=== PATIENT | female | born 1960 | race Hispanic/Latino ===

== ENCOUNTER 2018-05-29 10:39 | Outpatient (CLI) | payer OTHER | END 2018-05-29 10:40 | disposition home or self-care (01) | LOC: BICMAMMO 10:39 | PROVIDERS: ATTEND Family Medicine | DX: Z12.31 Encounter for screening mammogram for malignant neoplasm of breast (principal) | CPT/HCPCS: 77063; 77067 ==

== ENCOUNTER 2019-07-15 13:53 | Outpatient (CLI) | payer OTHER ==
--- NOTE | 2019-07-15 11:40 | MMO ---
Bilateral MAMMO Bilat Screen [facility]. CLINICAL HISTORY: Patient is 59 years old and is seen for screening. The patient has no family history of breast cancer. The patient has no personal history of cancer. VIEWS: The views performed were: bilateral craniocaudal with tomosynthesis and bilateral mediolateral oblique with tomosynthesis. FILMS COMPARED: The present examination has been compared to prior imaging studies performed at [facility] on 12/14/2014, 02/07/2016, 04/01/2017 and 05/29/2018. This study has been interpreted with the assistance of computer-aided detection. MAMMOGRAM FINDINGS: There are scattered fibroglandular densities. Finding 1: There are stable benign appearing calcifications seen in both breasts. There are no suspicious masses, calcifications or areas of architectural distortion. Finding 2: There is a stable oval mass seen in the left breast. There are no suspicious masses, suspicious calcifications, or new areas of architectural distortion. IMPRESSION: THERE IS NO MAMMOGRAPHIC EVIDENCE OF MALIGNANCY. A ROUTINE FOLLOW-UP MAMMOGRAM IN 1 YEAR IS RECOMMENDED. THE RESULTS OF THIS EXAM WERE SENT TO THE PATIENT. ACR BI-RADS Category 2 - Benign finding MAMMOGRAPHY NOTE: 1. A negative mammogram report should not delay a biopsy if a dominant of clinically suspicious mass is present. 2. Approximately 10% to 15% of breast cancers are not detected by mammography. 3. Adenosis and dense breasts may obscure an underlying neoplasm. Reported by: SAYDA ANGELO MD Electonically Signed: [id number]
== END 2019-07-15 13:54 | disposition home or self-care (01) ==
LOC: BICMAMMO 13:53
PROVIDERS: ATTEND Family Medicine
DX: Z12.31 Encounter for screening mammogram for malignant neoplasm of breast (principal)
CPT/HCPCS: 77063; 77067

== ENCOUNTER 2020-05-30 14:36 | Outpatient (CLI) | payer BC ==
--- NOTE | 2020-05-30 14:53 | RAD ---
EXAM: Chest PA and lateral: HISTORY: Dyspnea. Systemic sclerosis. COMPARISON: 12/15/2014 FINDINGS: Heart: Normal cardiac silhouette Aorta: Unremarkable Pulmonary vessels: Normal Costophrenic angles: Costophrenic angles are clear. Lungs: No consolidation or masses. Chronic lung parenchymal changes. Pneumothorax: No pneumothorax Osseous structures: No osseous abnormalities IMPRESSION: No acute cardiopulmonary process.
== END 2020-05-30 14:37 | disposition home or self-care (01) ==
LOC: BICRAD 14:36
PROVIDERS: ATTEND Internal Medicine Rheumatology
DX: R06.00 Dyspnea, unspecified (principal); M34.9 Systemic sclerosis, unspecified
CPT/HCPCS: 71046

== ENCOUNTER 2021-05-02 10:21 | Outpatient (CLI) | payer BC | END 2021-05-02 10:22 | disposition home or self-care (01) | LOC: BICRAD 10:21 | PROVIDERS: ATTEND Internal Medicine Pulmonary Disease | DX: R06.00 Dyspnea, unspecified (principal) | CPT/HCPCS: 71046 ==

== ENCOUNTER 2021-07-10 12:19 | Outpatient (CLI) | payer BC | END 2021-07-10 12:20 | disposition home or self-care (01) | LOC: BICMAMMO 12:19 | PROVIDERS: ATTEND Family Medicine | DX: Z12.31 Encounter for screening mammogram for malignant neoplasm of breast (principal) | CPT/HCPCS: 77063; 77067 ==

== ENCOUNTER 2023-06-21 18:17 | Inpatient (IN) | payer MEDICARE, MEDICAID ==
[2023-06-21] MEDS ORDERED: Ondansetron PF 4 MG/2 ML Vial ONE (18:32)
[2023-06-21] MEDS ORDERED: hydrALAZINE 20 MG/ML VIAL ONE (18:59)
[2023-06-21] MEDS ORDERED: Promethazine HCl 25 MG in Sodium Chloride 0.9% 50 ML IVPB SCH (19:00)
[2023-06-21] MEDS ORDERED: Pantoprazole 80 MG, Admixture Fee 1 EACH in Sodium Chloride 0.9% 100 ML IVPB SCH (19:00)
[2023-06-21 19:10] LABS: #Eosinphils 0.2 thou/uL (0.0-0.7); #Monocytes 0.6 thou/uL (0.11-0.59); #Neutrophils 7.5 thou/uL (1.40-6.50); %Basophils 0.3 % (0.0-1.0); %Eosinophils 2.3 % (0.0-10.0); %Lymphocytes 17.9 % (21.0-51.0); %Monocytes 5.6 % (0.0-10.0); %Neutrophils 73.5 % (42.0-75.0); Hematocrit 43.9 % (36.0-47.0); Hemoglobin 13.9 g/dL (12.0-16.0); Mean Corpuscular HGB CONC 31.7 g/dL (32.0-36.0); Mean Corpuscular Hemoglobin 27.7 pg (27.0-31.0); Mean Corpuscular Volume 87.5 fl (78.0-98.0); Mean Platelet Volume 11.9 fL (7.4-10.4); Platelet Count 242 10x3/uL (130-400); Red Blood Cell (RBC) Count 5.02 mill/uL (4.20-5.40); White Blood Cell (WBC) Count 10.3 10x3/uL (4.8-10.8)
[2023-06-21 19:21] LABS: INR-International Normal Ratio 0.8; Prothrombin Time 11.7 sec (12.0-14.7)
[2023-06-21 19:22] LABS: PTT 27.7 sec (22.9-36.1)
[2023-06-21] MEDS ORDERED: Ondansetron PF 4 MG/2 ML Vial IVP PRN (20:45)
[2023-06-21] MEDS ORDERED: Ondansetron ODT 4 MG TAB SL PRN (20:45)
[2023-06-21] MEDS ORDERED: Sodium Chloride 0.9% 1,000 ML IV SCH ×2 (20:45→23:05)
[2023-06-21 20:54] LABS: Albumin 3.2 g/dL (3.4-4.8)
[2023-06-21 20:56] LABS: Calcium 8.7 mg/dL (7.8-10.44); Chloride 107 mmol/L (98-107); Potassium 3.4 mmol/L (3.5-5.1); Sodium 141 mmol/L (136-145)
[2023-06-21 20:57] LABS: Glucose 300 mg/dL (80-115)
[2023-06-21 20:58] LABS: Anion Gap 12 mmol/L (10-20); Carbon Dioxide 25 mmol/L (23-31); Globulin 3.1 g/dL (2.4-3.5); Protein, Total 6.3 g/dL (5.8-8.1)
[2023-06-21 20:59] LABS: Bilirubin, Total 0.3 mg/dL (0.2-1.2)
[2023-06-21 21:00] LABS: Alkaline Phosphatase 125 U/L (40-110)
[2023-06-21 21:01] LABS: BUN (Urea Nitrogen) 22 mg/dL (9.8-20.1); Calc. Creatinine Clearance 0 mL/min (70-130); Estimated GFR 27
[2023-06-21 21:02] LABS: AST (SGOT) 15 U/L (5-34); Iron Binding Capacity, Total 291 mcg/dL (265-497)
[2023-06-21 21:03] LABS: ALT (SGPT) 10 U/L (8-55); Iron 43 ug/dL (50-170)
[2023-06-21] MEDS ORDERED: Dextrose 5% in Water 1,000 ML IV PRN (21:41)
[2023-06-21] MEDS ORDERED: Dextrose 50% Abboject 50 ML SYRINGE SLOW IVP PRN (21:41)
[2023-06-21] MEDS ORDERED: HumaLOG 300 UNITS/3 ML VIAL SC PRN (21:41)
[2023-06-21] MEDS ORDERED: Glucagon 1 MG/ML KIT IM PRN (21:41)
[2023-06-21] MEDS ORDERED: Furosemide 40 MG/4 ML VIAL SLOW IVP SCH (22:00)
[2023-06-21 23:10] LABS: Hemoglobin A1c 10.3 % (4.0-6.0)
[2023-06-21] MEDS: Octreotide Acetate 1,250 MCG in Sodium Chloride 0.9% 250 ML 250 ML IVPB SCH (23:38)
[2023-06-22 00:30] LABS: Bilirubin Negative (Negative); Blood, Urine Negative (Negative); Clarity Turbid (Clear); Glucose, Urine (Dipstick) >=1000 mg/dL (Negative); Ketone, Urine Negative (Negative); Leukocyte Negative Leu/uL (Negative); Nitrite Negative (Negative); Protein, Urine (Dipstick) 300 mg/dL (Neg-Trace); Urobilinogen Normal mg/dL (Less than 2); pH, Urine 7.5 (5.0-9.0)
[2023-06-22 00:40] LABS: Amphetamine Not Detected (NotDetected); Barbiturates Screen Not Detected (NotDetected); Benzodiazepine Screen Not Detected (NotDetected); Cocaine Metabolite Screen Not Detected (NotDetected); Methadone Not Detected (NotDetected); Methamphetamine Not Detected (NotDetected); Opiate Screen Not Detected (NotDetected); Oxycodone Screen Not Detected (NotDetected); Phencyclidine (PCP) Not Detected (NotDetected); THC/Cannabinoid Screen Not Detected (NotDetected); Tricyclic Screen Not Detected (NotDetected)
[2023-06-22 00:43] LABS: CAUTI Indications for Culture Alt mental st,lethar; RBC/HPF 0-3 HPF (0-3); Squamous Epithelial None Seen HPF (0-3); Urine Culture Reflex No No; WBC/HPF 0-3 HPF (0-3)
[2023-06-22] MEDS ORDERED: Promethazine HCl 25 MG in Sodium Chloride 0.9% 50 ML IVPB PRN (00:45)
[2023-06-22] MEDS: hydrALAZINE 20 MG/ML VIAL SLOW IVP PRN ×2 (00:45→08:57)
[2023-06-22 00:48] LABS: Bacteria/HPF 4+ HPF (None Seen)
[2023-06-22] MEDS: Promethazine HCl 12.5 MG in Sodium Chloride 0.9% 50 ML IVPB PRN ×2 (01:07→09:25)
[2023-06-22] MEDS ORDERED: HumaLOG 300 UNITS/3 ML VIAL SC SCH (01:30)
[2023-06-22] MEDS ORDERED: Electrolyte Replacement Protocol 1 EACH FS PRN (06:09)
[2023-06-22 06:28] LABS: #Monocytes 0.3 thou/uL (0.11-0.59); #Neutrophils 10.3 thou/uL (1.40-6.50); %Basophils 0.3 % (0.0-1.0); %Lymphocytes 7.5 % (21.0-51.0); %Monocytes 2.2 % (0.0-10.0); %Neutrophils 89.3 % (42.0-75.0); Hematocrit 38.9 % (36.0-47.0); Hemoglobin 12.6 g/dL (12.0-16.0); Mean Corpuscular HGB CONC 32.4 g/dL (32.0-36.0); Mean Corpuscular Hemoglobin 27.8 pg (27.0-31.0); Mean Corpuscular Volume 85.7 fl (78.0-98.0); Mean Platelet Volume 12.2 fL (7.4-10.4); RBC Distribution Width 13.2 % (11.5-14.5); Red Blood Cell (RBC) Count 4.54 mill/uL (4.20-5.40); White Blood Cell (WBC) Count 11.5 10x3/uL (4.8-10.8)
[2023-06-22 06:31] LABS: Platelet Count 179 10x3/uL (130-400)
[2023-06-22 07:10] LABS: Anion Gap 15 mmol/L (10-20); Carbon Dioxide 22 mmol/L (23-31); Chloride 110 mmol/L (98-107); Cholesterol 184 mg/dl (< 200 Desired); Sodium 145 mmol/L (136-145); Triglycerides 110 mg/dL (Less than 150)
[2023-06-22 08:32] LABS: BUN (Urea Nitrogen) 25 mg/dL (9.8-20.1); Calc. Creatinine Clearance 26 mL/min (70-130)
[2023-06-22 08:33] LABS: Cardiac Risk 3.1 (Less than 4.5); Estimated GFR 24; Glucose 182 mg/dL (80-115); HDL Cholesterol 62 mg/dL (>60 Neg Risk); LDL Cholesterol, Calculated 105 mg/dL
[2023-06-22] MEDS ORDERED: Lactated Ringer's 1,000 ML IV SCH ×2 (09:00→09:55)
[2023-06-22] MEDS: Potassium Chloride 20 MEQ in Premix 1 BAG IVPB SCH ×2 (09:31→10:59)
[2023-06-22] MEDS: Insulin Glargine 30 UNITS/0.3 ML VIAL SC SCH (09:31)
[2023-06-22] MEDS: Pantoprazole 40 MG VIAL IVP SCH ×2 (09:32→20:57)
[2023-06-22] MEDS ORDERED: Sodium Chloride 0.9% 1,000 ML IV SCH (11:00)
[2023-06-22] MEDS ORDERED: Scopolamine 1 mg/72 hour Patch TD SCH ×2 (12:30→14:00)
[2023-06-22] MEDS: Ondansetron PF 4 MG/2 ML Vial IVP SCH ×2 (12:44→18:32)
[2023-06-22] MEDS: Labetalol HCl 100 MG/20 ML VIAL SLOW IVP PRN ×2 (13:53→20:58)
[2023-06-22] MEDS: HumaLOG 300 UNITS/3 ML VIAL SC PRN (14:38)
[2023-06-22] MEDS: Metoclopramide HCl 10 MG/2 ML VIAL IVP PRN ×2 (15:43→21:49)
[2023-06-22] MEDS: niCARdipine 25 MG in Sodium Chloride 0.9% 250 ML 250 ML IVPB PRN (21:49)
[2023-06-22] MEDS: Octreotide Acetate 1,250 MCG in Sodium Chloride 0.9% 250 ML 250 ML IVPB SCH (22:00)
[2023-06-23] MEDS: Ondansetron PF 4 MG/2 ML Vial IVP SCH ×5 (00:15→23:07)
[2023-06-23] MEDS: niCARdipine 25 MG in Sodium Chloride 0.9% 250 ML 250 ML IVPB PRN ×2 (05:03→16:56)
[2023-06-23 07:24] LABS: #Monocytes 0.5 thou/uL (0.11-0.59); #Neutrophils 10.8 thou/uL (1.40-6.50); %Basophils 0.2 % (0.0-1.0); %Eosinophils 0.1 % (0.0-10.0); %Lymphocytes 9.6 % (21.0-51.0); %Neutrophils 85.6 % (42.0-75.0); Hematocrit 36.7 % (36.0-47.0); Hemoglobin 11.1 g/dL (12.0-16.0); Mean Corpuscular HGB CONC 30.2 g/dL (32.0-36.0); Mean Corpuscular Hemoglobin 27.4 pg (27.0-31.0); Mean Corpuscular Volume 90.6 fl (78.0-98.0); Mean Platelet Volume 11.9 fL (7.4-10.4); Platelet Count 249 10x3/uL (130-400); RBC Distribution Width 13.4 % (11.5-14.5); Red Blood Cell (RBC) Count 4.05 mill/uL (4.20-5.40); White Blood Cell (WBC) Count 12.7 10x3/uL (4.8-10.8)
[2023-06-23] MEDS ORDERED: Sodium Chloride 0.9% 1,000 ML IV SCH (07:45)
[2023-06-23 07:47] LABS: Anion Gap 11 mmol/L (10-20); BUN (Urea Nitrogen) 27 mg/dL (9.8-20.1); Calc. Creatinine Clearance 23 mL/min (70-130); Calcium 8.5 mg/dL (7.8-10.44); Carbon Dioxide 28 mmol/L (23-31); Chloride 112 mmol/L (98-107); Estimated GFR 21; Glucose 135 mg/dL (80-115); Potassium 3.8 mmol/L (3.5-5.1); Sodium 147 mmol/L (136-145)
[2023-06-23] MEDS: Insulin Glargine 30 UNITS/0.3 ML VIAL SC SCH (07:53)
[2023-06-23] MEDS: Pantoprazole 40 MG VIAL IVP SCH ×2 (07:58→21:00)
[2023-06-23] MEDS ORDERED: Lactated Ringer's 1,000 ML IV SCH (08:45)
[2023-06-23] MEDS ORDERED: PROPOFOL 200 MG/20 ML VIAL ONE (09:54)
[2023-06-23] MEDS ORDERED: Promethazine HCl 25 MG/ML VIAL IM PRN (10:03)
[2023-06-23] MEDS ORDERED: Ondansetron HCl/PF 4 MG/2 ML Vial IVP PRN (10:03)
[2023-06-23] MEDS: HumaLOG 300 UNITS/3 ML VIAL SC PRN ×2 (12:49→18:29)
[2023-06-23] MEDS: Carvedilol 6.25 MG TAB PO SCH (16:35)
[2023-06-23] MEDS: Acetaminophen 500 MG TAB PO PRN (18:26)
[2023-06-23] MEDS: hydrALAZINE 20 MG/ML VIAL SLOW IVP PRN ×2 (18:32→23:07)
[2023-06-24 03:59] LABS: #Basophils 0.1 thou/uL (0.0-0.2); #Eosinphils 0.1 thou/uL (0.0-0.7); #Monocytes 0.4 thou/uL (0.11-0.59); #Neutrophils 7.2 thou/uL (1.40-6.50); %Basophils 0.6 % (0.0-1.0); %Eosinophils 0.6 % (0.0-10.0); %Lymphocytes 12.2 % (21.0-51.0); %Monocytes 4.5 % (0.0-10.0); %Neutrophils 81.8 % (42.0-75.0); Hematocrit 36.1 % (36.0-47.0); Hemoglobin 10.9 g/dL (12.0-16.0); Mean Corpuscular HGB CONC 30.2 g/dL (32.0-36.0); Mean Corpuscular Hemoglobin 27.7 pg (27.0-31.0); Mean Corpuscular Volume 91.6 fl (78.0-98.0); Mean Platelet Volume 11.5 fL (7.4-10.4); Platelet Count 222 10x3/uL (130-400); RBC Distribution Width 13.3 % (11.5-14.5); Red Blood Cell (RBC) Count 3.94 mill/uL (4.20-5.40); White Blood Cell (WBC) Count 8.8 10x3/uL (4.8-10.8)
[2023-06-24 04:26] LABS: Anion Gap 9 mmol/L (10-20); BUN (Urea Nitrogen) 24 mg/dL (9.8-20.1); Calc. Creatinine Clearance 26 mL/min (70-130); Calcium 8.3 mg/dL (7.8-10.44); Carbon Dioxide 27 mmol/L (23-31); Chloride 108 mmol/L (98-107); Estimated GFR 24; Glucose 153 mg/dL (80-115); Sodium 140 mmol/L (136-145)
[2023-06-24] MEDS: Ondansetron PF 4 MG/2 ML Vial IVP SCH (05:20)
[2023-06-24] MEDS: hydrALAZINE 20 MG/ML VIAL SLOW IVP PRN ×5 (05:20→23:53)
[2023-06-24] MEDS: Carvedilol 6.25 MG TAB PO SCH ×2 (07:59→16:33)
[2023-06-24] MEDS: Losartan 25 MG TAB PO SCH (07:59)
[2023-06-24] MEDS: Pantoprazole 40 MG VIAL IVP SCH ×2 (08:00→20:31)
[2023-06-24] MEDS: Insulin Glargine 30 UNITS/0.3 ML VIAL SC SCH (08:00)
[2023-06-24] MEDS ORDERED: Losartan 25 MG TAB PO SCH (09:00)
[2023-06-24] MEDS: HumaLOG 300 UNITS/3 ML VIAL SC PRN ×2 (11:49→15:22)
[2023-06-24] MEDS: Acetaminophen 500 MG TAB PO PRN ×2 (11:54→20:30)
[2023-06-24] MEDS: Metoclopramide HCl 10 MG/2 ML VIAL IVP PRN ×2 (14:17→21:20)
[2023-06-24] MEDS ORDERED: Carvedilol 25 MG TAB PO SCH (17:00)
[2023-06-24] MEDS: AMOXicillin 250 MG CAP PO SCH (20:31)
[2023-06-24] MEDS ORDERED: AMOXicillin 250 MG CAP PO SCH (21:00)
[2023-06-24] MEDS ORDERED: Dextrose 5%-Lactated Ringers 1,000 ML IV SCH (23:45)
[2023-06-25] MEDS ORDERED: Bisacodyl 5 MG TAB PO PRN (00:19)
[2023-06-25] MEDS ORDERED: Dicyclomine 10 MG CAP PO SCH (00:30)
[2023-06-25] MEDS ORDERED: Polyethylene Glycol 3350 17 GM Packet PO SCH (00:30)
[2023-06-25] MEDS: cloNIDine 0.2 MG TAB PO PRN (05:03)
[2023-06-25 05:35] LABS: #Eosinphils 0.1 thou/uL (0.0-0.7); #Monocytes 0.5 thou/uL (0.11-0.59); #Neutrophils 6.4 thou/uL (1.40-6.50); %Basophils 0.4 % (0.0-1.0); %Eosinophils 0.6 % (0.0-10.0); %Lymphocytes 16.5 % (21.0-51.0); %Monocytes 6.3 % (0.0-10.0); %Neutrophils 75.7 % (42.0-75.0); Hemoglobin 11.7 g/dL (12.0-16.0); Mean Corpuscular HGB CONC 30.8 g/dL (32.0-36.0); Mean Corpuscular Hemoglobin 27.7 pg (27.0-31.0); Mean Corpuscular Volume 89.8 fl (78.0-98.0); Mean Platelet Volume 11.3 fL (7.4-10.4); Platelet Count 229 10x3/uL (130-400); RBC Distribution Width 13.1 % (11.5-14.5); Red Blood Cell (RBC) Count 4.23 mill/uL (4.20-5.40); White Blood Cell (WBC) Count 8.4 10x3/uL (4.8-10.8)
[2023-06-25] MEDS: Metoclopramide HCl 10 MG/2 ML VIAL IVP PRN (05:59)
[2023-06-25 06:07] LABS: Anion Gap 10 mmol/L (10-20); BUN (Urea Nitrogen) 26 mg/dL (9.8-20.1); Calc. Creatinine Clearance 26 mL/min (70-130); Calcium 8.3 mg/dL (7.8-10.44); Carbon Dioxide 26 mmol/L (23-31); Chloride 104 mmol/L (98-107); Estimated GFR 23; Glucose 170 mg/dL (80-115); Sodium 136 mmol/L (136-145)
[2023-06-25] MEDS ORDERED: Insulin Glargine 30 UNITS/0.3 ML VIAL SC SCH (09:00)
[2023-06-25] MEDS ORDERED: Amlodipine 5 MG TAB PO SCH (09:00)
[2023-06-25] MEDS ORDERED: FLU VACC QS2023(65UP)/MF59C/PF 60 MCG/0.5 ML SYRINGE IM ONE (09:00)
[2023-06-25] MEDS ORDERED: Famotidine 20 MG TAB PO SCH (09:00)
[2023-06-25] MEDS: Carvedilol 25 MG TAB PO SCH ×2 (09:06→17:35)
[2023-06-25] MEDS: Polyethylene Glycol 3350 17 GM Packet PO SCH (09:06)
[2023-06-25] MEDS: Losartan 25 MG TAB PO SCH (09:06)
[2023-06-25] MEDS: Pantoprazole 40 MG VIAL IVP SCH ×2 (09:06→20:59)
[2023-06-25] MEDS: Insulin Glargine 30 UNITS/0.3 ML VIAL SC SCH (09:07)
[2023-06-25] MEDS: AMOXicillin 250 MG CAP PO SCH ×2 (10:00→20:59)
[2023-06-25] MEDS: HumaLOG 300 UNITS/3 ML VIAL SC PRN ×3 (12:30→17:04)
[2023-06-25] MEDS: hydrALAZINE 20 MG/ML VIAL SLOW IVP PRN (15:41)
[2023-06-26 04:34] LABS: #Eosinphils 0.1 thou/uL (0.0-0.7); #Monocytes 0.5 thou/uL (0.11-0.59); #Neutrophils 6.8 thou/uL (1.40-6.50); %Basophils 0.3 % (0.0-1.0); %Eosinophils 0.9 % (0.0-10.0); %Lymphocytes 15.9 % (21.0-51.0); %Monocytes 6.1 % (0.0-10.0); %Neutrophils 76.5 % (42.0-75.0); Hematocrit 33.1 % (36.0-47.0); Hemoglobin 10.2 g/dL (12.0-16.0); Mean Corpuscular HGB CONC 30.8 g/dL (32.0-36.0); Mean Corpuscular Hemoglobin 27.9 pg (27.0-31.0); Mean Corpuscular Volume 90.7 fl (78.0-98.0); Mean Platelet Volume 11.7 fL (7.4-10.4); Platelet Count 177 10x3/uL (130-400); RBC Distribution Width 12.9 % (11.5-14.5); Red Blood Cell (RBC) Count 3.65 mill/uL (4.20-5.40); White Blood Cell (WBC) Count 8.9 10x3/uL (4.8-10.8)
[2023-06-26] MEDS: Acetaminophen 500 MG TAB PO PRN ×3 (04:39→16:58)
[2023-06-26] MEDS: cloNIDine 0.2 MG TAB PO PRN (04:40)
[2023-06-26 05:00] LABS: Anion Gap 13 mmol/L (10-20); BUN (Urea Nitrogen) 23 mg/dL (9.8-20.1); Calc. Creatinine Clearance 28 mL/min (70-130); Calcium 7.9 mg/dL (7.8-10.44); Carbon Dioxide 22 mmol/L (23-31); Chloride 106 mmol/L (98-107); Estimated GFR 26; Glucose 141 mg/dL (80-115); Sodium 137 mmol/L (136-145)
[2023-06-26] MEDS: hydrALAZINE 20 MG/ML VIAL SLOW IVP PRN ×5 (05:53→17:54)
[2023-06-26] MEDS ORDERED: traMADol HCl 50 MG TAB PO SCH (06:45)
[2023-06-26] MEDS ORDERED: Amlodipine 5 MG TAB PO SCH ×3 (09:00→09:15)
[2023-06-26] MEDS: Losartan 25 MG TAB PO SCH (10:18)
[2023-06-26] MEDS: AMOXicillin 250 MG CAP PO SCH ×2 (10:18→20:27)
[2023-06-26] MEDS: Carvedilol 25 MG TAB PO SCH ×2 (10:19→16:59)
[2023-06-26] MEDS: Metoclopramide HCl 10 MG/2 ML VIAL IVP PRN ×2 (10:19→20:27)
[2023-06-26] MEDS: Insulin Glargine 30 UNITS/0.3 ML VIAL SC SCH (10:20)
[2023-06-26] MEDS: Pantoprazole 40 MG VIAL IVP SCH ×2 (10:20→20:27)
[2023-06-26] MEDS: Polyethylene Glycol 3350 17 GM Packet PO SCH (10:22)
[2023-06-26] MEDS ORDERED: Promethazine 25 MG TAB PO PRN (13:03)
[2023-06-26] MEDS: HumaLOG 300 UNITS/3 ML VIAL SC PRN ×2 (13:20→16:59)
[2023-06-26] MEDS ORDERED: SUMAtriptan Succinate 50 MG TAB PO SCH (13:30)
[2023-06-26] MEDS: Simethicone Chewable 80 MG TAB PO PRN (20:28)
[2023-06-27 04:25] LABS: #Eosinphils 0.2 thou/uL (0.0-0.7); #Monocytes 0.6 thou/uL (0.11-0.59); #Neutrophils 4.6 thou/uL (1.40-6.50); %Basophils 0.3 % (0.0-1.0); %Eosinophils 2.7 % (0.0-10.0); %Monocytes 8.1 % (0.0-10.0); %Neutrophils 68.6 % (42.0-75.0); Hematocrit 34.2 % (36.0-47.0); Hemoglobin 10.5 g/dL (12.0-16.0); Mean Corpuscular HGB CONC 30.7 g/dL (32.0-36.0); Mean Corpuscular Hemoglobin 27.4 pg (27.0-31.0); Mean Corpuscular Volume 89.3 fl (78.0-98.0); Mean Platelet Volume 11.7 fL (7.4-10.4); Platelet Count 205 10x3/uL (130-400); RBC Distribution Width 13.1 % (11.5-14.5); Red Blood Cell (RBC) Count 3.83 mill/uL (4.20-5.40); White Blood Cell (WBC) Count 6.8 10x3/uL (4.8-10.8)
[2023-06-27 04:47] LABS: Anion Gap 11 mmol/L (10-20); BUN (Urea Nitrogen) 26 mg/dL (9.8-20.1); Calc. Creatinine Clearance 31 mL/min (70-130); Carbon Dioxide 25 mmol/L (23-31); Chloride 104 mmol/L (98-107); Estimated GFR 25; Glucose 134 mg/dL (80-115); Potassium 4.1 mmol/L (3.5-5.1); Sodium 136 mmol/L (136-145)
[2023-06-27] MEDS: Calcium Carbonate 500 MG ChewTAB PO PRN ×2 (05:14→23:16)
[2023-06-27] MEDS: cloNIDine 0.2 MG TAB PO PRN (06:47)
[2023-06-27] MEDS: AMOXicillin 250 MG CAP PO SCH ×2 (08:22→21:07)
[2023-06-27] MEDS: Simethicone Chewable 80 MG TAB PO PRN (08:22)
[2023-06-27] MEDS: Polyethylene Glycol 3350 17 GM Packet PO SCH (08:23)
[2023-06-27] MEDS: Insulin Glargine 30 UNITS/0.3 ML VIAL SC SCH (08:23)
[2023-06-27] MEDS: Carvedilol 25 MG TAB PO SCH ×2 (08:23→17:05)
[2023-06-27] MEDS: Losartan 25 MG TAB PO SCH (08:23)
[2023-06-27] MEDS: Pantoprazole 40 MG VIAL IVP SCH ×2 (08:24→21:08)
[2023-06-27] MEDS ORDERED: Amlodipine 5 MG TAB PO SCH ×4 (09:00→21:00)
[2023-06-27] MEDS: hydrALAZINE 20 MG/ML VIAL SLOW IVP PRN ×3 (09:07→12:13)
[2023-06-27] MEDS: Metoclopramide HCl 10 MG/2 ML VIAL IVP PRN (09:48)
[2023-06-27] MEDS ORDERED: Meclizine HCl 12.5 MG TAB PO PRN (11:54)
[2023-06-27] MEDS ORDERED: Sucralfate 1 GM/10 ML UDCUP PO PRN (11:55)
[2023-06-27] MEDS: HumaLOG 300 UNITS/3 ML VIAL SC PRN (18:09)
[2023-06-27] MEDS: Amlodipine 10 MG TAB PO SCH (21:07)
[2023-06-28] MEDS: cloNIDine 0.2 MG TAB PO PRN (01:47)
[2023-06-28 04:45] LABS: #Eosinphils 0.1 thou/uL (0.0-0.7); #Monocytes 0.6 thou/uL (0.11-0.59); #Neutrophils 5.5 thou/uL (1.40-6.50); %Basophils 0.3 % (0.0-1.0); %Eosinophils 1.8 % (0.0-10.0); %Lymphocytes 18.2 % (21.0-51.0); %Monocytes 7.7 % (0.0-10.0); %Neutrophils 71.7 % (42.0-75.0); Hematocrit 32.9 % (36.0-47.0); Hemoglobin 10.4 g/dL (12.0-16.0); Mean Corpuscular HGB CONC 31.6 g/dL (32.0-36.0); Mean Corpuscular Hemoglobin 27.7 pg (27.0-31.0); Mean Corpuscular Volume 87.7 fl (78.0-98.0); Mean Platelet Volume 11.7 fL (7.4-10.4); Platelet Count 186 10x3/uL (130-400); RBC Distribution Width 12.8 % (11.5-14.5); Red Blood Cell (RBC) Count 3.75 mill/uL (4.20-5.40); White Blood Cell (WBC) Count 7.6 10x3/uL (4.8-10.8)
[2023-06-28 05:01] VITALS: BMI 32.6
[2023-06-28 05:11] LABS: Anion Gap 12 mmol/L (10-20); BUN (Urea Nitrogen) 23 mg/dL (9.8-20.1); Calc. Creatinine Clearance 33 mL/min (70-130); Calcium 8.1 mg/dL (7.8-10.44); Carbon Dioxide 25 mmol/L (23-31); Chloride 101 mmol/L (98-107); Estimated GFR 26; Glucose 159 mg/dL (80-115); Potassium 3.8 mmol/L (3.5-5.1); Sodium 134 mmol/L (136-145)
[2023-06-28] MEDS: Acetaminophen 500 MG TAB PO PRN (05:38)
[2023-06-28] MEDS: Polyethylene Glycol 3350 17 GM Packet PO SCH (08:06)
[2023-06-28] MEDS: Losartan 25 MG TAB PO SCH (08:07)
[2023-06-28] MEDS: Carvedilol 25 MG TAB PO SCH ×2 (08:07→17:34)
[2023-06-28] MEDS: Pantoprazole 40 MG VIAL IVP SCH ×2 (08:07→20:27)
[2023-06-28] MEDS: Insulin Glargine 30 UNITS/0.3 ML VIAL SC SCH (08:07)
[2023-06-28] MEDS: AMOXicillin 250 MG CAP PO SCH ×2 (08:07→20:27)
[2023-06-28] MEDS: hydrALAZINE 20 MG/ML VIAL SLOW IVP PRN (10:12)
[2023-06-28] MEDS: HumaLOG 300 UNITS/3 ML VIAL SC PRN ×2 (13:08→17:34)
[2023-06-28] MEDS ORDERED: Metoclopramide HCl 10 MG/2 ML VIAL IVP PRN (13:30)
[2023-06-28] MEDS: Sucralfate 1 GM/10 ML UDCUP PO SCH ×2 (14:35→20:27)
[2023-06-28] MEDS: Amlodipine 10 MG TAB PO SCH (20:28)
[2023-06-29 05:04] LABS: #Eosinphils 0.2 thou/uL (0.0-0.7); #Monocytes 0.7 thou/uL (0.11-0.59); #Neutrophils 5.7 thou/uL (1.40-6.50); %Basophils 0.2 % (0.0-1.0); %Eosinophils 2.8 % (0.0-10.0); %Lymphocytes 18.6 % (21.0-51.0); %Monocytes 8.2 % (0.0-10.0); %Neutrophils 69.8 % (42.0-75.0); Hematocrit 31.9 % (36.0-47.0); Hemoglobin 10.1 g/dL (12.0-16.0); Mean Corpuscular HGB CONC 31.7 g/dL (32.0-36.0); Mean Corpuscular Hemoglobin 28.1 pg (27.0-31.0); Mean Corpuscular Volume 88.6 fl (78.0-98.0); Mean Platelet Volume 11.6 fL (7.4-10.4); Platelet Count 197 10x3/uL (130-400); RBC Distribution Width 12.9 % (11.5-14.5); White Blood Cell (WBC) Count 8.1 10x3/uL (4.8-10.8)
[2023-06-29 05:23] LABS: Anion Gap 9 mmol/L (10-20); BUN (Urea Nitrogen) 23 mg/dL (9.8-20.1); Calc. Creatinine Clearance 29 mL/min (70-130); Calcium 8.2 mg/dL (7.8-10.44); Carbon Dioxide 26 mmol/L (23-31); Chloride 103 mmol/L (98-107); Estimated GFR 23; Glucose 168 mg/dL (80-115); Potassium 3.5 mmol/L (3.5-5.1); Sodium 134 mmol/L (136-145)
[2023-06-29] MEDS: HumaLOG 300 UNITS/3 ML VIAL SC PRN ×3 (05:24→18:19)
[2023-06-29] MEDS ORDERED: Potassium Chloride 20 MEQ TAB PO SCH (08:00)
[2023-06-29] MEDS: Losartan 25 MG TAB PO SCH (08:54)
[2023-06-29] MEDS: Sucralfate 1 GM/10 ML UDCUP PO SCH ×4 (08:54→20:52)
[2023-06-29] MEDS: AMOXicillin 250 MG CAP PO SCH ×2 (08:54→20:51)
[2023-06-29] MEDS: Carvedilol 25 MG TAB PO SCH ×2 (08:54→18:18)
[2023-06-29] MEDS: Pantoprazole 40 MG VIAL IVP SCH ×2 (08:55→20:51)
[2023-06-29] MEDS: Insulin Glargine 30 UNITS/0.3 ML VIAL SC SCH (08:55)
[2023-06-29] MEDS: Polyethylene Glycol 3350 17 GM Packet PO SCH ×2 (08:55→10:27)
[2023-06-29 13:51] LABS: Potassium 4.2 mmol/L (3.5-5.1)
[2023-06-29] MEDS ORDERED: Minoxidil 2.5 MG TAB PO SCH (14:15)
[2023-06-29] MEDS: Amlodipine 10 MG TAB PO SCH (20:51)
[2023-06-30 04:37] LABS: #Eosinphils 0.2 thou/uL (0.0-0.7); #Monocytes 0.7 thou/uL (0.11-0.59); #Neutrophils 5.2 thou/uL (1.40-6.50); %Basophils 0.1 % (0.0-1.0); %Eosinophils 2.8 % (0.0-10.0); %Monocytes 9.3 % (0.0-10.0); %Neutrophils 69.5 % (42.0-75.0); Hematocrit 31.8 % (36.0-47.0); Hemoglobin 10.1 g/dL (12.0-16.0); Mean Corpuscular HGB CONC 31.8 g/dL (32.0-36.0); Mean Corpuscular Hemoglobin 28.3 pg (27.0-31.0); Mean Corpuscular Volume 89.1 fl (78.0-98.0); Mean Platelet Volume 12.1 fL (7.4-10.4); Platelet Count 211 10x3/uL (130-400); RBC Distribution Width 12.9 % (11.5-14.5); Red Blood Cell (RBC) Count 3.57 mill/uL (4.20-5.40); White Blood Cell (WBC) Count 7.5 10x3/uL (4.8-10.8)
[2023-06-30 05:02] LABS: Anion Gap 10 mmol/L (10-20); BUN (Urea Nitrogen) 22 mg/dL (9.8-20.1); Calc. Creatinine Clearance 26 mL/min (70-130); Calcium 8.2 mg/dL (7.8-10.44); Carbon Dioxide 27 mmol/L (23-31); Chloride 103 mmol/L (98-107); Estimated GFR 21; Glucose 222 mg/dL (80-115); Potassium 4.1 mmol/L (3.5-5.1); Sodium 136 mmol/L (136-145)
[2023-06-30] MEDS: HumaLOG 300 UNITS/3 ML VIAL SC PRN ×3 (06:55→18:02)
[2023-06-30] MEDS ORDERED: Minoxidil 2.5 MG TAB PO SCH (09:00)
[2023-06-30] MEDS: AMOXicillin 250 MG CAP PO SCH ×2 (09:02→20:24)
[2023-06-30] MEDS: Carvedilol 25 MG TAB PO SCH ×2 (09:02→18:01)
[2023-06-30] MEDS: Losartan 25 MG TAB PO SCH (09:02)
[2023-06-30] MEDS: Insulin Glargine 30 UNITS/0.3 ML VIAL SC SCH (09:02)
[2023-06-30] MEDS: Pantoprazole 40 MG VIAL IVP SCH ×2 (09:04→20:25)
[2023-06-30] MEDS: Sucralfate 1 GM/10 ML UDCUP PO SCH ×3 (09:04→20:25)
[2023-06-30] MEDS: Polyethylene Glycol 3350 17 GM Packet PO SCH (09:04)
[2023-06-30] MEDS: Amlodipine 10 MG TAB PO SCH (20:24)
[2023-06-30] MEDS: hydrALAZINE 20 MG/ML VIAL SLOW IVP PRN (23:19)
[2023-07-01 05:39] LABS: #Eosinphils 0.2 thou/uL (0.0-0.7); #Monocytes 0.6 thou/uL (0.11-0.59); #Neutrophils 4.2 thou/uL (1.40-6.50); %Basophils 0.3 % (0.0-1.0); %Eosinophils 2.6 % (0.0-10.0); %Lymphocytes 20.4 % (21.0-51.0); %Monocytes 8.8 % (0.0-10.0); %Neutrophils 67.6 % (42.0-75.0); Hematocrit 30.8 % (36.0-47.0); Hemoglobin 9.8 g/dL (12.0-16.0); Mean Corpuscular HGB CONC 31.8 g/dL (32.0-36.0); Mean Corpuscular Hemoglobin 28.2 pg (27.0-31.0); Mean Corpuscular Volume 88.5 fl (78.0-98.0); Mean Platelet Volume 11.9 fL (7.4-10.4); Platelet Count 200 10x3/uL (130-400); RBC Distribution Width 13.1 % (11.5-14.5); Red Blood Cell (RBC) Count 3.48 mill/uL (4.20-5.40); White Blood Cell (WBC) Count 6.2 10x3/uL (4.8-10.8)
[2023-07-01] MEDS: HumaLOG 300 UNITS/3 ML VIAL SC PRN ×2 (06:42→13:55)
[2023-07-01 07:01] LABS: Anion Gap 10 mmol/L (10-20); BUN (Urea Nitrogen) 19 mg/dL (9.8-20.1); Calc. Creatinine Clearance 28 mL/min (70-130); Carbon Dioxide 27 mmol/L (23-31); Chloride 104 mmol/L (98-107); Estimated GFR 23; Glucose 208 mg/dL (80-115); Potassium 3.8 mmol/L (3.5-5.1); Sodium 137 mmol/L (136-145)
[2023-07-01] MEDS ORDERED: Insulin Glargine 30 UNITS/0.3 ML VIAL SC SCH (09:45)
[2023-07-01] MEDS: Sucralfate 1 GM/10 ML UDCUP PO SCH (10:20)
[2023-07-01] MEDS: Acetaminophen 500 MG TAB PO PRN (10:20)
[2023-07-01] MEDS: Losartan 25 MG TAB PO SCH (10:20)
[2023-07-01] MEDS: Polyethylene Glycol 3350 17 GM Packet PO SCH (10:21)
[2023-07-01] MEDS: AMOXicillin 250 MG CAP PO SCH (10:21)
[2023-07-01] MEDS: Pantoprazole 40 MG VIAL IVP SCH (10:21)
[2023-07-01] MEDS: Carvedilol 25 MG TAB PO SCH (10:21)
[2023-07-01] MEDS: Insulin Glargine 30 UNITS/0.3 ML VIAL SC SCH (10:29)
[2023-07-01 12:06] VITALS: BP 147/67; TEMP 97.9
[2023-07-01] MEDS ORDERED: Minoxidil 2.5 MG TAB PO SCH (21:00)
[2023-07-02] MEDS ORDERED: Minoxidil 2.5 MG TAB PO SCH (09:00)
[2023-07-02] MEDS ORDERED: Insulin Glargine 30 UNITS/0.3 ML VIAL SC SCH (09:00)
== END 2023-07-01 14:50 | disposition home or self-care (01) | DRG 304 ==
LOC: ERS 18:17 → CCU 20:37 → 2NO 06-25 22:55
PROVIDERS: ADMIT Student in an Organized Health Care Education/Training Program; ATTEND Student in an Organized Health Care Education/Training Program
PROC: 0DB78ZX Excision of Stomach, Pylorus, Via Natural or Artificial Opening Endoscopic, Diagnostic (ICD-10-PCS; principal; 2023-06-23)
DX: I16.1 Hypertensive emergency (principal); I61.9 Nontraumatic intracerebral hemorrhage, unspecified; E87.1 Hypo-osmolality and hyponatremia; G93.40 Encephalopathy, unspecified; N18.4 Chronic kidney disease, stage 4 (severe); N17.9 Acute kidney failure, unspecified; K22.10 Ulcer of esophagus without bleeding; I13.0 Hypertensive heart and chronic kidney disease with heart failure and stage 1 through stage 4 chronic kidney disease, or unspecified chronic kidney disease; K29.70 Gastritis, unspecified, without bleeding; I25.10 Atherosclerotic heart disease of native coronary artery without angina pectoris; I50.9 Heart failure, unspecified; R21 Rash and other nonspecific skin eruption; B86 Scabies; E11.22 Type 2 diabetes mellitus with diabetic chronic kidney disease; R26.81 Unsteadiness on feet; F41.9 Anxiety disorder, unspecified; F32.A Depression, unspecified; E11.65 Type 2 diabetes mellitus with hyperglycemia; R33.9 Retention of urine, unspecified; R51.9 Headache, unspecified; E78.5 Hyperlipidemia, unspecified; E87.8 Other disorders of electrolyte and fluid balance, not elsewhere classified; D63.1 Anemia in chronic kidney disease; K31.819 Angiodysplasia of stomach and duodenum without bleeding; D72.829 Elevated white blood cell count, unspecified; R32 Unspecified urinary incontinence; Z96.649 Presence of unspecified artificial hip joint; Z95.810 Presence of automatic (implantable) cardiac defibrillator; Z88.8 Allergy status to other drugs, medicaments and biological substances; Z88.5 Allergy status to narcotic agent; Z79.4 Long term (current) use of insulin; Z79.899 Other long term (current) drug therapy; Z90.49 Acquired absence of other specified parts of digestive tract; Z95.1 Presence of aortocoronary bypass graft
CPT/HCPCS: 36415; 36416; 70450; 71045; 74176; 76770; 80048; 80053; 80061; 80306; 80307; 81001; 82728; 83036; 83540; 83550; 83605; 83880; 84436; 84443; 84484; 85025; 85610; 85730; 86850; 86900; 86901; 87040; 87077; 87086; 87186; 88305; 88342; 93005; 93976; 96365; 96366; 96375; C9113; J0360; J1815; J1940; J2354; J2405; J2550; J2704; J2765; J3480; J3490; J7050; J7120; J7999

== ENCOUNTER 2023-09-03 10:41 | Outpatient (CLI) | payer MEDICARE, BC | END 2023-09-03 10:42 | disposition home or self-care (01) | LOC: BICMAMMO 10:41 | PROVIDERS: ATTEND Family Medicine | DX: Z12.31 Encounter for screening mammogram for malignant neoplasm of breast (principal) | CPT/HCPCS: 77063; 77067 ==